=== PATIENT | male | born 1960 | race Caucasian/White ===

== ENCOUNTER 2016-05-21 20:07 | Emergency (ER) | payer OTHER ==
[2015-07-03 11:10] VITALS: BMI 21.8
[~2016-05-21 20:07] MED LIST: DULERA 100 MCG8.8 GM INH; HYDROCODONE-APA1 TAB PO; IPRAT-ALBUT 0.5-3 ML INH; LEVAQUIN500 MG PO; MEDROL DOSE PACK4 MG PO; PROAIR HFA8.5 GM INH; VENTOLIN HFA18 GM INH
== END 2016-05-21 22:35 | disposition home or self-care (01) ==
LOC: D.ER 20:07
DX: S61.412A Laceration without foreign body of left hand, initial encounter (principal); W29.8XXA Contact with other powered hand tools and household machinery, initial encounter; Y93.89 Activity, other specified; Y92.019 Unspecified place in single-family (private) house as the place of occurrence of the external cause; J45.909 Unspecified asthma, uncomplicated